=== PATIENT | male | born 1970 | race Hispanic/Latino ===

== ENCOUNTER 2022-02-25 14:38 | Emergency (ER) | payer OTHER, SELFPAY ==
[2022-02-25] MEDS ORDERED: Clindamycin 150 MG CAP ONE (17:14)
== END 2022-02-25 17:13 | disposition home or self-care (01) ==
LOC: CSHERS 14:38
DX: L98.9 Disorder of the skin and subcutaneous tissue, unspecified (principal)
CPT/HCPCS: 88305; 99282